=== PATIENT | male | born 1985 | race Caucasian/White ===

== ENCOUNTER 2025-02-10 23:42 | Inpatient (IN) | payer MEDICAID, SELFPAY ==
[2025-02-10 23:31] VITALS: PULSE 96
--- NOTE | 2025-02-10 23:38 | W.PM.HP.N ---
Date of service: 02/10/25 Time of Service: 23:38 Assessment and Plan Assessment and plan (1) Acute pancreatitis without infection or necrosis: Status: Acute Assessment and plan: This is a 39-year-old gentleman with a history of chronic methadone treatment with no other medical therapy and also having chronic alcoholism mostly binge drinking. His is been binge drinking last 3 months and stopped having alcohol this morning when he had acute onset of abdominal pain with vomiting. He has acute pancreatitis by CT scan done at outside institution and ultrasound of the abdomen has been ordered to rule out gallbladder disease but this most likely be an alcohol induced pancreatitis. There appears to be no complications of infection or cyst/abscess formation by outside CT scan report. Patient will be given Dilaudid IV for pain management and IV hydration with electrolyte repletion as below. He also will be placed on alcohol withdrawal protocol with phenobarbital as below. He has a full code. (2) Alcohol withdrawal: Status: Acute Assessment and plan: Acute onset with cessation of alcohol secondary to pancreatitis. Alcohol withdrawal protocol. ICU admission with his severity. (3) Hypokalemia: Start date: 02/10/25 Status: Acute Assessment and plan: IV repletion and monitor labs. This most likely is secondary to GI loss with his vomiting. (4) Hypomagnesemia: Start date: 02/10/25 Status: Acute Assessment and plan: IV repletion and monitor closely especially patient having bigeminy PVCs. EKG did not show any acute ischemic changes. Is not having chest pain. (5) Acute hyperglycemia: Start date: 02/10/25 Status: Acute Assessment and plan: Patient has no history of diabetes but hemoglobin A1c will be checked and he will have glucometer measurements every 6 hours while n.p.o. for his acute pancreatitis with sensitive insulin sliding scale coverage. (6) Chronic alcoholism: Status: Chronic Assessment and plan: Patient should consider outpatient rehabilitation for alcohol cessation. He is already on methadone for opiate use disorder. He does have high risk for self treatment with his multiple addictive issues and urine drug screen was done being negative for cocaine but positive for methadone and positive for opiates with patient receiving opiates and ER for his acute pancreatitis prior to admission and prior to this urine drug screen. And also with positive THC. Patient will have send out urine drug screens for buprenorphine, fentanyl, oxycodone and xylazine. He will continue counseling for his opioid use disorder at the [facility]. (7) Opioid use disorder, moderate, in early remission, on maintenance therapy, dependence: Status: Chronic Assessment and plan: Continue methadone once confirmed as 125 mg liquid methadone daily once patient has less nausea and vomiting. Watch for opioid withdrawal as well. This dose may need to be adjusted if he continues to vomit and is dehydrated. The PDMP was reviewed and negative for any prescribed narcotics with methadone being given through the clinic and not on this report. History of Present Illness History of Present Illness Chief Complaint: Acute onset of abdominal pain with nausea and vomiting in a alcoholic Narrative: This is a 39-year-old male patient who is transferred from [facility] ED because of ICU level care required with his alcohol withdrawal. He presented to the ED with acute onset of abdominal pain with nausea and vomiting for almost the entire day began at 8 AM the day of presentation 02/10/2025. He was given to go through alcohol withdrawal and was having some issues with pain control as well as requiring IV fluids for replacement of potassium and magnesium as well as hydration. He has no history of diabetes but did have hyperglycemia. He also had an elevated anion gap. His liver function tests were not elevated and his PT/INR was only slightly elevated with his chronic alcohol use. He is on chronic methadone at 130 mg daily. PDMP was reviewed and shows no prescribed narcotics with methadone not on this report being given through the clinic. The patient's dosage will be confirmed with [facility] prior to continuing. He reports no other home meds. Patient states that his last drink of alcohol was the morning of admission when he began to have nausea and vomiting with his abdominal pain. He has gone through alcohol withdrawal in the past when placed in prison but they did treat him with Librium at that time. He has never been hospitalized for alcohol withdrawal or pancreatitis. He does still have his gallbladder. He is a smoker and will need nicotine supplement. He denies other drug use but urine drug screen with send outs for atypical street drugs will be sent because of the patient's risk of self treatment. He does have an opioid use disorder on methadone as stated. The patient states that he drinks an binge episode and recently has been drinking heavily for 3 months. As stated he denies any previous pancreatitis. Patient will be admitted to the ICU for close monitoring on alcohol withdrawal protocol with phenobarbital. He is a full code. Review of Systems Narrative: 13 point review of system otherwise unrevealing or stable. PFSH All Active Problems (Updated 02/11/25 @ 05:55 by Pritesh Balderas) Acute hyperglycemia (Acute) Opioid use disorder, moderate, in early remission, on maintenance therapy, dependence (Chronic) Hypomagnesemia (Acute) Hypokalemia (Acute) Alcohol withdrawal (Acute) Chronic alcoholism (Chronic) Acute pancreatitis without infection or necrosis (Acute) Social History Smoking/Tobacco Use Status: Current every day Tobacco Type: cigarettes Years smoked: 20 Tobacco: How many years used: 20 Smoking risk assessment performed?: Yes Alcohol Intake: current Alcohol Intake frequency: 3 or more drinks per day Alcohol type: hard liquor Drug use: Occasionally Substance use type: marijuana and opiates Housing: house Meds Allergies and Home Medications Allergies Allergy/AdvReac Type Severity Reaction Status Date / Time No Known Allergies Allergy Unverified 02/11/25 00:08 Exam Narrative Exam Narrative: General: Patient appears in moderate to severe distress from his abdominal discomfort and sweating but is alert and oriented x 3. Skin: Pale, sweaty and cool. HEENT: Normocephalic, eyes with pupils equal and react to light symmetrically, extraocular movement intact and sclera anicteric. Oropharynx with dry mucosa and poor dentition with discoloration but no missing teeth. Neck: Supple without JVD. Back: Stooped posture without CVA tenderness. Lungs: Bronchovesicular breath sounds diffusely with no focalizing rales or rhonchi. No expiratory wheeze. Heart: Bradycardic with regularly irregular beat having an extrasystole every other beat with cardiac monitoring revealing PVCs and bigeminy. No clinical murmur or gallop. Abdomen: Obese and slightly protuberant, guarding tenderness in the upper abdomen especially in the epigastric area with no rebound. No appreciable hepatomegaly but exam limited by patient guarding pain. Bowel sounds are decreased but active in all quadrants. (Rectal: Exam deferred. Extremities: Without clubbing, cyanosis or pitting edema. Peripheral pulses intact. Neuro: Cranial nerves II to XII gross intact, no tremor and no focalized motor deficits. Psych: Flat affect the patient manifesting no abnormal thought processes. He appeared depressed. He is slightly anxious. Remote and recent memory appear grossly intact. Results Labs 02/11/25 05:35 02/10/25 23:55 Time Spent Time spent with Patient: >75 minutes Time was spent: preparing to see the patient(eg.review tests), obtaining and/or reviewing separately otained hiistory, ordering medications,tests, procedures, referring, communicating with other health infant caregiver, indepentently interpreting results, counseling the patient and care coordination
[2025-02-10 23:40] VITALS: PULSE 101; PULSE 98; RESP 15; O2SAT 94
--- NOTE | 2025-02-10 23:45 | RT.EKG_ITS ---
APPROVED REPORT Exam: Resting ECG Reason for Exam: Bigeminy PVCs Patient Location: I HR:100 bpm ECG Measurements Heart Rate 100 AXIS AR 119 P 36 QRSd 92 QRS -15 QT 396 T 39 QTc 511 Conclusion Sinus rhythm Ventricular bigeminy...bigeminy string>4 w/ V complexes Borderline short AR interval...AR int <120mS Low voltage, extremity leads...all extremity leads <0.5mV
[2025-02-10 23:49] VITALS: BP 175/98; PULSE 101; PULSE 46; RESP 25; TEMP 36.4; O2SAT 96
[2025-02-10 23:50] VITALS: PULSE 48; PULSE 99; RESP 19; O2SAT 95
[2025-02-11] VITALS (63 sets, daily range): BP systolic 139–180; BP diastolic 88–123; PULSE 40–128; RESP 14–34; TEMP 36.6–37.6; O2SAT 89–97
[2025-02-11 00:18] LABS: INR 1.1 (0.9-1.1); Prothrombin Time 11.4 sec (9.1-11.1)
[2025-02-11 00:20] LABS: ALT 27 U/L (16-63); AST 46 U/L (15-37); Albumin 2.7 g/dL (3.4-5.0); Alkaline Phosphatase 79 U/L (46-116); Anion Gap 15.5 mmol/L (3-11); BUN 9 mg/dL (7-18); Bilirubin, Total 0.9 mg/dL (0.2-1.0); CO2 21.5 mmol/L (21.0-32.0); Calcium 8.3 mg/dL (8.5-10.1); Chloride 107 mmol/L (98-107); Estimated GFR 78.40 (mL/min/1.73m2); Glucose 210 mg/dL (74-106); Magnesium 1.7 mg/dL (1.8-2.4); Potassium 4.3 mmol/L (3.5-5.1); Sodium 144 mmol/L (136-145); Total Protein 5.7 g/dL (6.4-8.2)
[2025-02-11] MEDS: Lactated Ringers 1,000 ML 150 ML IV ×4 (00:21→22:44)
[2025-02-11] MEDS: HYDROmorphone 2 MG/ML SYR IVP ×5 (00:21→08:49)
[2025-02-11] MEDS: Normal Saline Flush 10 ML SYR (00:27)
[2025-02-11 00:28] LABS: TSH 0.67 uIU/mL (0.36-3.74)
[2025-02-11] MEDS: Normal Saline Flush 10 ML SYR IVP ×7 (00:28→20:22)
[2025-02-11] MEDS: MAGNESIUM SULFATE 4 GM/100 ML BAG IV_INF (00:48)
[2025-02-11 00:50] LABS: COVID-19 PCR Negative (Negative); RSV PCR Negative (Negative)
[2025-02-11] MEDS: PHENobarbital 130 MG/ML VIAL IVP ×4 (01:28→12:03)
[2025-02-11] MEDS: ACETAMINOPHEN 1,000 MG/100 ML BAG 400 MG IVPB ×2 (01:38→17:31)
[2025-02-11] MEDS: POTASSIUM CHLORIDE 20 MEQ/100 ML BAG 50 MEQ IV_INF (02:38)
[2025-02-11] MEDS: PHENobarbital 150 MG in Normal Saline 50 ML 100 MG IVPB ×2 (03:22→06:26)
[2025-02-11] MEDS: Nicotine 21 MG/24 HR PATCH TD (03:33)
--- NOTE | 2025-02-11 03:50 | W.PC.ACHO ---
Registration Status: ADM IN Primary Language: Preferred Language: Most Recent Vital Signs Temperature 37.1 C 02/11/25 02:00 Pulse 96 H 02/11/25 02:40 Pulse 96 H 02/11/25 02:40 Respiratory Rate 17 02/11/25 02:40 Respiratory Effort Normal 02/11/25 00:01 Blood Pressure 165/110 H 02/11/25 02:00 Blood Pressure Mean 125 02/11/25 02:00 Blood Pressure Position Supine 02/11/25 00:01 Pulse Oximetry 95 02/11/25 02:40 Oxygen Delivery Method Room Air 02/11/25 00:01 Oxygen Flow Rate 0 02/11/25 00:01 Pain Level 10 02/11/25 02:29 Allergies No Known Allergies Allergy (Unverified 02/11/25 00:08) Active Medications Generic Name Dose Route Start Last Admin Trade Name Freq PRN Reason Stop Dose Admin Hydromorphone HCl 2 mg 02/11/25 01:05 02/11/25 02:29 Hydromorphone 2 Mg/Ml Syr IVP 2 mg Q2H PRN Administration Phenobarbital Sodium 300 mg/ 52.3077 mls @ 100 mls/hr 02/12/25 00:00 02/11/25 01:00 Sodium Chloride IVPB 02/12/25 00:31 Infused NOW ONE Infusion Phenobarbital Sodium 150 mg/ 51.1538 mls @ 100 mls/hr 02/11/25 03:00 02/11/25 03:22 Sodium Chloride IVPB 02/11/25 04:00 100 mls/hr ONCE@0300 SANDOVAL Administration Acetaminophen 1,000 mg in 100 mls @ 400 mls/hr 02/11/25 01:04 02/11/25 02:35 Ofirmev IVPB Infused Q6H PRN PRN Infusion Ringer's Solution 1,000 mls @ 150 mls/hr 02/11/25 03:00 02/11/25 00:21 IV 150 mls/hr INFUSION SANDOVAL Administration Nicotine 21 mg 02/11/25 03:20 02/11/25 03:33 Nicotine 21 Mg/24 Hr Patch TD 21 mg DAILY SANDOVAL Administration Phenobarbital Sodium 130 mg 02/10/25 23:47 02/11/25 02:08 Phenobarbital 130 Mg/Ml Vial IVP 130 mg DIRECTED PRN Administration for mild anxiety/agitation Sodium Chloride 0 ml 02/10/25 23:42 02/11/25 00:28 Normal Saline Flush 10 Ml Syr IVP 40 ml PRN PRN Administration IV IV Catheter Type [Right Peripheral IV Antecubital] IV Catheter Gauge [Right 18 Antecubital] Diet Orders Category Date Time Status Nothing Per Oral [DIET] Nutrition 02/10/25 23:44 Active Diagnostics 02/11/25 02/11/25 02/11/25 Range/Units 05:35 03:06 00:37 WBC Pending RBC Pending Hgb Pending Hct Pending MCV Pending MCH Pending MCHC Pending RDW Pending Plt Count Pending MPV Pending PT (9.1-11.1) sec INR (0.9-1.1) Sodium Pending (136-145) mmol/L Potassium Pending (3.5-5.1) mmol/L Chloride Pending (98-107) mmol/L Carbon Dioxide Pending (21.0-32.0) mmol/L Anion Gap Pending (3-11) mmol/L BUN Pending (7-18) mg/dL Creatinine Pending (0.70-1.30) mg/dL Est GFR (CKD-EPI 2020) Pending (mL/min/1.73m2) Glucose Pending (74-106) mg/dL Calcium Pending (8.5-10.1) mg/dL Phosphorus Pending Magnesium Pending (1.8-2.4) mg/dL Total Bilirubin Pending (0.2-1.0) mg/dL AST Pending (15-37) U/L ALT Pending (16-63) U/L Alkaline Phosphatase Pending (46-116) U/L Total Protein Pending (6.4-8.2) g/dL Albumin Pending (3.4-5.0) g/dL TSH (0.36-3.74) uIU/mL Urine Color Urine Clarity Urine pH Ur Specific Fay Urine Protein Urine Ketones Urine Blood Urine Nitrite Urine Bilirubin Urine Urobilinogen Ur Leukocyte Esterase Urine Glucose Urine Opiates Screen Pending Ur Buprenorphine Ur Norbuprenorphine Ur Oxycodone Screen Urine Fentanyl Screen Pending Ur Barbiturates Screen Pending Ur Tricyclics Screen Pending Ur Amphetamines Screen Pending U Benzodiazepines Scrn Pending Urine Cocaine Screen Pending Ur THC Screen Pending Ethyl Alcohol (<10) mg/dL Urine Xylazine COVID-19 Source SARS-CoV-2 (PCR) (Negative) Influenza Type A (PCR) (Negative) Influenza Type B (PCR) (Negative) RSV (PCR) (Negative) 02/11/25 02/11/25 02/10/25 Range/Units 00:35 00:30 23:58 WBC RBC Hgb Hct MCV MCH MCHC RDW Plt Count MPV PT (9.1-11.1) sec INR (0.9-1.1) Sodium (136-145) mmol/L Potassium (3.5-5.1) mmol/L Chloride (98-107) mmol/L Carbon Dioxide (21.0-32.0) mmol/L Anion Gap (3-11) mmol/L BUN (7-18) mg/dL Creatinine (0.70-1.30) mg/dL Est GFR (CKD-EPI 2020) (mL/min/1.73m2) Glucose (74-106) mg/dL Calcium (8.5-10.1) mg/dL Phosphorus Magnesium (1.8-2.4) mg/dL Total Bilirubin (0.2-1.0) mg/dL AST (15-37) U/L ALT (16-63) U/L Alkaline Phosphatase (46-116) U/L Total Protein (6.4-8.2) g/dL Albumin (3.4-5.0) g/dL TSH (0.36-3.74) uIU/mL Urine Color Pending Urine Clarity Pending Urine pH Pending Ur Specific Fay Pending Urine Protein Pending Urine Ketones Pending Urine Blood Pending Urine Nitrite Pending Urine Bilirubin Pending Urine Urobilinogen Pending Ur Leukocyte Esterase Pending Urine Glucose Pending Urine Opiates Screen Ur Buprenorphine Pending Ur Norbuprenorphine Pending Ur Oxycodone Screen Pending Urine Fentanyl Screen Ur Barbiturates Screen Ur Tricyclics Screen Ur Amphetamines Screen U Benzodiazepines Scrn Urine Cocaine Screen Ur THC Screen Ethyl Alcohol (<10) mg/dL Urine Xylazine Pending COVID-19 Source Nasopharynx SARS-CoV-2 (PCR) Negative (Negative) Influenza Type A (PCR) Negative (Negative) Influenza Type B (PCR) Negative (Negative) RSV (PCR) Negative (Negative) 02/10/25 02/10/25 Range/Units 23:55 22:55 WBC RBC Hgb Hct MCV MCH MCHC RDW Plt Count MPV PT 11.4 H (9.1-11.1) sec INR 1.1 (0.9-1.1) Sodium 144 (136-145) mmol/L Potassium 4.3 (3.5-5.1) mmol/L Chloride 107 (98-107) mmol/L Carbon Dioxide 21.5 (21.0-32.0) mmol/L Anion Gap 15.5 H (3-11) mmol/L BUN 9 (7-18) mg/dL Creatinine 1.2 (0.70-1.30) mg/dL Est GFR (CKD-EPI 2020) 78.40 (mL/min/1.73m2) Glucose 210 H (74-106) mg/dL Calcium 8.3 L (8.5-10.1) mg/dL Phosphorus Magnesium 1.7 L (1.8-2.4) mg/dL Total Bilirubin 0.9 (0.2-1.0) mg/dL AST 46 H (15-37) U/L ALT 27 (16-63) U/L Alkaline Phosphatase 79 (46-116) U/L Total Protein 5.7 L (6.4-8.2) g/dL Albumin 2.7 L (3.4-5.0) g/dL TSH 0.67 (0.36-3.74) uIU/mL Urine Color Urine Clarity Urine pH Ur Specific Fay Urine Protein Urine Ketones Urine Blood Urine Nitrite Urine Bilirubin Urine Urobilinogen Ur Leukocyte Esterase Urine Glucose Urine Opiates Screen Ur Buprenorphine Ur Norbuprenorphine Ur Oxycodone Screen Urine Fentanyl Screen Ur Barbiturates Screen Ur Tricyclics Screen Ur Amphetamines Screen U Benzodiazepines Scrn Urine Cocaine Screen Ur THC Screen Ethyl Alcohol < 3.0 (<10) mg/dL Urine Xylazine COVID-19 Source SARS-CoV-2 (PCR) (Negative) Influenza Type A (PCR) (Negative) Influenza Type B (PCR) (Negative) RSV (PCR) (Negative) [id number] Documentation Fingerstick Glucose Start: 02/10/25 23:45 Freq: Status: Active Protocol: Activity Type Activity Date Activity User E-sign Co-sign Detail Recorded Client Recorded Date Recorded By Document 02/10/25 23:45 ETHANG DAEMON(3) [id number] 02/10/25 23:45 BKG DAEMON(4) Intake and Output - 24 Hour Total 02/10/25 thru 02/11/25 02:42 Intake Total 262.3077 Output Total 300 Balance -37.6923 Weight 75.2 kg Intake: IV 262.3077 Output: Urine 300 Other: Urine Color Light Cierra Urine Appearance Clear Urine Odor None Falls Risk Assessment History of Falls No History 02/11/25 00:01 Contributing Factors Medications 02/11/25 00:01 Tubes/Lines With any additional score 02/11/25 00:01 Gait Evaluation No gait disturbance 02/11/25 00:01 Fall Total Score 23 02/11/25 00:01 Level of Risk Standard/Low Risk 02/11/25 00:01 Problems (Last Reviewed 02/10/25 @ 23:38 by Pritesh Balderas) Hypomagnesemia (Acute) Hypokalemia (Acute) Alcohol withdrawal (Acute) Chronic alcoholism (Acute) Acute pancreatitis without infection or necrosis (Acute) v v v v v v v v v Sending and/or Receiving Nurses: Please use comment section below to note any information pertinent to the patient hand-off not included above. Information / Comments: Report received from: Elsa Leung RN all questions answered: yes
[2025-02-11] MEDS: Ondansetron 4 MG/2 ML VIAL IVP (04:04)
[2025-02-11 04:16] LABS: Glucose Negative (Negative)
[2025-02-11 04:27] LABS: C & S Indicated? No; RBC 0-2 HPF (0-2); WBC Negative HPF (0-5)
[2025-02-11 04:37] LABS: Cannabinoids THC Positive (Negative); METHADONE URINE SCREEN Positive (Negative)
[2025-02-11 06:24] LABS: HCT 36.2 % (40.0-50.0); HGB 12.4 g/dL (13.5-17.5); MCH 33.9 pg (27.0-33.0); MCHC 34.3 % (32.0-36.0); MCV 99 fL (80-95); MPV 9.5 fL (8.0-11.0); Platelet Count 250 10^3/uL (130-400); RBC 3.66 10^6/uL (4.36-5.78); RDW 19.5 % (11.8-14.1); RDW-SD 67.1 fL; WBC 11.07 10^3/uL (4.4-10.8)
[2025-02-11 06:36] LABS: ALT 25 U/L (16-63); AST 44 U/L (15-37); Albumin 2.6 g/dL (3.4-5.0); Alkaline Phosphatase 71 U/L (46-116); Anion Gap 12.1 mmol/L (3-11); BUN 9 mg/dL (7-18); Bilirubin, Total 0.9 mg/dL (0.2-1.0); CO2 21.9 mmol/L (21.0-32.0); Calcium 8.3 mg/dL (8.5-10.1); Chloride 106 mmol/L (98-107); Estimated GFR 97.58 (mL/min/1.73m2); Glucose 238 mg/dL (74-106); Magnesium 2.4 mg/dL (1.8-2.4); Potassium 4.2 mmol/L (3.5-5.1); Sodium 140 mmol/L (136-145); Total Protein 5.6 g/dL (6.4-8.2)
[2025-02-11 06:46] LABS: Hemoglobin A1C 5.8 % (<5.7)
[2025-02-11] MEDS: Metoclopramide 10 MG/2 ML VIAL IVP ×2 (07:01→22:06)
--- NOTE | 2025-02-11 08:00 | DI.US_ITS ---
Exam(s) US ABDOMEN LIMITED EXAM: US ABDOMEN LIMITED CLINICAL HISTORY: Acute pancreatitis TECHNIQUE: Ultrasound of the right upper quadrant performed using standard protocol. COMPARISON: No exams were available for comparison FINDINGS: LIVER: Enlarged at 19.3 cm in length. Normal coarsened echotexture. Increased echogenicity and decreased through transmission, consistent with moderate to severe hepatic steatosis. No focal liver lesions are seen.. GALLBLADDER: No evidence of cholelithiasis. No evidence of wall thickening. No pericholecystic fluid identified. CAMERON'S SIGN: Negative. BILIARY SYSTEM: No intrahepatic or extrahepatic biliary ductal dilation. RIGHT KIDNEY: Normal size. No evidence of renal calculi. No evidence of hydronephrosis. No suspicious renal mass. No cyst identified. PANCREAS: Not well visualized. No gross evidence of surrounding fluid. ABDOMINAL AORTA AND IVC: Visualized portions normal caliber. ASCITES: None seen. IMPRESSION: Enlarged liver with moderate to severe hepatic steatosis. Pancreas is not visualized. No gallstones or evidence of acute cholecystitis. DATA REPOSITORY:
[2025-02-11] MEDS: Methadone Liquid 10 MG/ML 125 MG PO (08:48)
[2025-02-11] MEDS: Enoxaparin 40 MG/0.4 ML SYR SC (08:50)
--- NOTE | 2025-02-11 09:09 | W.NUTRFU ---
Date of service: 02/11/25 Time of Service: 09:09 Nutrition Note NOTE: Pt currently day 2 of NPO statues since admission yesterday for acute pancreatitis with hyperglycemia related to etoh w/drawl. low mag - being repleted. Ordered for banana bag for repletion as well. Glucose fingersticks ordered q6 hours to monitor. A1c 5.8 02/11/25 - indicative or prediabetes. No curernt nutrition intervention planned at this time due to npo status - will monitor for diet advancement/toleration, nutrition-related labs, weight. Time Spent in Nutritional Counseling and Treatment: 0
[2025-02-11] MEDS: MULTIVITAMIN 10 ML, THIAMINE 100 MG, FOLIC ACID 1 MG in DEXTROSE 5%-0.45% SALINE 1,000 ML 42 ML IV (09:19)
--- NOTE | 2025-02-11 09:39 | INITIAL_ITS ---
Date of service: 02/11/25 Time of Service: 09:39 Care Management Initial Assmt Initial Assessment Reason for Hospitalization: pancreatitis Functional Status/Living Situation Patient Presentation: Amauri lives alone in [facility] in a single family home which he owns. He is currently unemployed; he was recently [facility]. He shared that he does do work for his mother for which he is paid. Prior to his incarceration he worked in construction as a front desk administrator. Amauri has one child who lives with her mother in [place]. When asked, he confirmed that he does maintain a relationship with her. Amauri receives food stamps but no other community resources and is independent at baseline. Amauri was admitted with pancreatitis and alcohol withdrawal. He is on the phenobarbital protocol and has only been scoring 3-4 on the CIWA scale. He informed that he has been drinking heavily for the last couple of months but had not been a particularly heavy drinker in the past. offered to contact a recovery advocate but Amauri declined. His pain has been difficult to control, possibly because he is on maintenance suboxone and has a high pain threshold. He has been requiring 3 mg of IV Dilaudid every 2 hours and stated it only helps a little. During the visit Amauri was c/o nausea and needed to use his emesis bag for dry heaves. Town of Residence: [place] Resides with: Alone Significant Other/Family: Local Natural Supports: mother Employment Status: Unemployed Instrumental Activities of Daily Living (ADLs): Independent Medications Medication Management: No Issues/Barriers identified Physical Functioning/Mobility Assistive Device: none Advance Directives Advance Directives: Do you have an Advance Directive: AD On File at [facility]: N Today, 00:24 Date Asked AD Date Reviewed COLST On File at 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 STAFF PHYSICIAN Isma Garcia DO Primary Care Provider NON-[facility] STAFF PHYSICIAN Pritesh Balderas Admit Provider NON-[facility] STAFF PHYSICIAN Attending Provider Discharge Potential Discharge Needs: PCP F/U Appt Anticipated Barriers to Discharge: None Identified Patient/Family Education Needs: Review discharge instructions, discuss Ask Me Three Transportation: Private vehicle Plan: Anticipate Amauri will be discharged home with no new services when medically cleared. He will follow up with his conmmunity providers and plan of care and transport with family. CM will follow and continue to assess for discharge needs. Social Determinants of Health Screening Social Determinants of health last assessed in clinic: 02/11/25 Will the Patient Participate in the Screening?: Yes Do you worry about having a steady place to live?: no Problems where you live: no known problems In the past 12 months, have you had to go without electric, gas, oil or water in your home?: no 1. Within the past 12 months, we worried whether our food would run out before we got money to buy more.: Never true 2. Within the past 12 months, the food we bought just didn't last and we didn't have money to get more.: Never true Has lack of transportation kept you from medical appointments or from doing things needed for daily living?: no Has anyone in your life made you feel unsafe or unsupported?: no How hard is it for you to pay for the very basics like food, housing, medical care, and heating? Would you say it is:: Not hard at all Do you want help finding or keeping work or a job?: I do not need or want help If for any reason you need help with day-to-day activities such as bathing, preparing meals, shopping, managing finances, etc., do you get the help you need?: I don?t need any help How often do you feel lonely or isolated from those around you?: Never Do you speak a language other than Amharic at home?: No Does the patient want assistance with any of the above?: No PFSH All Active Problems (Updated 02/11/25 @ 12:10 by Greg Negron DO) Esophageal thickening (Acute) Acute hyperglycemia (Acute) Opioid use disorder, moderate, in early remission, on maintenance therapy, dependence (Chronic) Hypomagnesemia (Acute) Hypokalemia (Acute) Alcohol withdrawal (Acute) Chronic alcoholism (Chronic) Acute pancreatitis without infection or necrosis (Acute) Social History Smoking/Tobacco Use Status: Current every day Tobacco Type: cigarettes Years smoked: 20 Tobacco: How many years used: 20 Smoking risk assessment performed?: Yes Alcohol Intake: current Alcohol Intake frequency: 3 or more drinks per day Alcohol type: hard liquor Drug use: Occasionally Substance use type: marijuana and opiates Housing: [place]
[2025-02-11] MEDS: Insulin Aspart 300 UNITS/3 ML PEN SC ×3 (09:54→16:54)
[2025-02-11] MEDS: Calcium Carbonate *TUMS* 500 MG CHEW PO ×3 (10:12→22:05)
--- NOTE | 2025-02-11 10:15 | W.SURGCON ---
Date of service: 02/11/25 Time of Service: 10:15 Assessment and Plan Assessment and plan (1) Esophageal thickening: Status: Acute Assessment and plan: Incidental on outside CT scan. History of distal esophageal tear. Also chronic reflux, well-controlled. Currently in alcohol withdraw - discussed possible etiologies with patient - will need EGD but not stable for anesthesia at this time - will start with barium swallow at this time - discussed with radiology (2) Acute pancreatitis without infection or necrosis: Status: Acute Assessment and plan: Alcoholic pancreatitis following 3-month binge, no evidence of necrosis or infection on outside imaging. Right upper quadrant ultrasound negative for gallstones. Ultrasound shows hepatic steatosis and patient at risk for cirrhosis based on alcohol use. Hyperglycemia secondary to pancreatitis - Supportive care - Okay for clear liquid diet from surgery standpoint (3) Alcohol withdrawal: Status: Acute Assessment and plan: - CIWA monitoring and treatment per protocol (4) Opioid use disorder, moderate, in early remission, on maintenance therapy, dependence: Status: Chronic History of Present Illness History of Present Illness Chief Complaint: pancreatitis Narrative: 39-year-old male with history of alcoholism and substance abuse admitted with abdominal pain. Patient recently on a 3-month drinking binge. Patient presented to the emergency department at [facility] 02/10 with severe epigastric abdominal pain. CT scan showed pancreatitis and patient transferred to [facility] ICU for alcohol withdrawal. Incidentally noted, patient had distal esophageal thickening as well. Patient has history of distal esophageal tear secondary to emesis 20 years ago. Patient also has mild reflux, well-controlled with daily PPI. Denies dysphagia or chest pain after eating. Denies chest pain, shortness of breath. Epigastric pain remains severe. No nausea or vomiting Review of Systems Constitutional Constitutional: Denies chills, Denies fever(s), Denies poor appetite and Denies weakness ENT Ears, Nose, Mouth, and Throat: Denies dysphagia, Denies dizziness, Denies odynophagia and Denies throat swelling Cardiovascular Cardiovascular: Denies chest pain, Denies irregular heart rhythm and Denies dyspnea Respiratory Respiratory: Denies cough, Denies hemoptysis and Denies dyspnea Gastrointestinal Gastrointestinal: Reports abdominal pain (Epigastric), Denies dysphagia, Denies dyspepsia, Reports heartburn, Denies nausea, Denies odynophagia and Denies vomiting Neurologic Neurologic: Denies confusion, Denies dizziness and Denies weakness Psychiatric Psychiatric: Denies confusion Allergic/Immunologic Allergic/Immunologic: Denies throat swelling PFSH All Active Problems (Updated 02/11/25 @ 12:10 by Greg Negron DO) Esophageal thickening (Acute) Acute hyperglycemia (Acute) Opioid use disorder, moderate, in early remission, on maintenance therapy, dependence (Chronic) Hypomagnesemia (Acute) Hypokalemia (Acute) Alcohol withdrawal (Acute) Chronic alcoholism (Chronic) Acute pancreatitis without infection or necrosis (Acute) Social History Smoking/Tobacco Use Status: Current every day Tobacco Type: cigarettes Years smoked: 20 Tobacco: How many years used: 20 Smoking risk assessment performed?: Yes Alcohol Intake: current Alcohol Intake frequency: 3 or more drinks per day Alcohol type: hard liquor Drug use: Occasionally Substance use type: marijuana and opiates Housing: house Exam Const General: cooperative, comfortable and in distress HENMT Mouth: oral mucosae normal Resp Effort & Inspection: normal respiratory effort and no cough Cardio Rate: regular rate GI Inspection: normal to inspection Palpation: soft, no guarding and tender in the epigastrum and in the RUQ Skin General skin exam: no ecchymosis, no erythema and no jaundice Neuro General: patient alert, patient awake and patient oriented x3 Cranial Nerves: CN's II-XI intact bilaterally Cognition: normal cognition Speech: speech normal Psych Appearance: grossly normal Speech and Movement: speech and movement normal Results Last Vital Signs Temp 36.9 C 02/11/25 09:26 Pulse 85 02/11/25 09:27 Resp 20 02/11/25 09:27 BP 165/104 H 02/11/25 09:27 Pulse Ox 93 02/11/25 09:27 Labs 02/11/25 05:50 02/11/25 05:50 Labs: Laboratory Results - last 24 hr 02/10/25 02/10/25 02/10/25 22:55 23:55 23:58 WBC RBC Hgb Hct MCV MCH MCHC RDW Plt Count MPV PT 11.4 H INR 1.1 VBG Lactate Sodium 144 Potassium 4.3 Chloride 107 Carbon Dioxide 21.5 Anion Gap 15.5 H BUN 9 Creatinine 1.2 Est GFR (CKD-EPI 2020) 78.40 Glucose 210 H Hemoglobin A1c Calcium 8.3 L Phosphorus Magnesium 1.7 L Total Bilirubin 0.9 AST 46 H ALT 27 Alkaline Phosphatase 79 Total Protein 5.7 L Albumin 2.7 L TSH 0.67 Urine Color Urine Clarity Urine pH Ur Specific [place] Urine Protein Urine Ketones Urine Blood Urine Nitrite Urine Bilirubin Urine Urobilinogen Ur Leukocyte Esterase Urine RBC Urine WBC Ur Epithelial Cells Urine Crystals Urine Bacteria Urine Casts Urine Mucus Ur Culture Indicated? Urine Glucose Urine Opiates Screen Urine Methadone Screen Ur Barbiturates Screen Ur Tricyclics Screen Ur Amphetamines Screen U Benzodiazepines Scrn Urine Cocaine Screen Ur THC Screen Ethyl Alcohol < 3.0 COVID-19 Source Nasopharynx SARS-CoV-2 (PCR) Negative Influenza Type A (PCR) Negative Influenza Type B (PCR) Negative RSV (PCR) Negative 02/11/25 02/11/25 00:30 05:50 WBC 11.07 H RBC 3.66 L Hgb 12.4 L Hct 36.2 L MCV 99 H MCH 33.9 H MCHC 34.3 RDW 19.5 H Plt Count 250 MPV 9.5 PT INR VBG Lactate 5.7 H* Sodium 140 Potassium 4.2 Chloride 106 Carbon Dioxide 21.9 Anion Gap 12.1 H BUN 9 Creatinine 1.0 Est GFR (CKD-EPI 2020) 97.58 Glucose 238 H Hemoglobin A1c 5.8 H Calcium 8.3 L Phosphorus 2.3 L Magnesium 2.4 Total Bilirubin 0.9 AST 44 H ALT 25 Alkaline Phosphatase 71 Total Protein 5.6 L Albumin 2.6 L TSH Urine Color Yellow Urine Clarity Clear Urine pH 6.5 Ur Specific [place] 1.020 Urine Protein 30 H Urine Ketones Trace H Urine Blood Trace-lysed H Urine Nitrite Negative Urine Bilirubin Negative Urine Urobilinogen 0.2 Ur Leukocyte Esterase Negative Urine RBC 0-2 Urine WBC Negative Ur Epithelial Cells Negative Urine Crystals Negative Urine Bacteria Negative Urine Casts Negative Urine Mucus Negative Ur Culture Indicated? No Urine Glucose Negative Urine Opiates Screen Positive A Urine Methadone Screen Positive A Ur Barbiturates Screen Negative Ur Tricyclics Screen Negative Ur Amphetamines Screen Negative U Benzodiazepines Scrn Negative Urine Cocaine Screen Negative Ur THC Screen Positive A Ethyl Alcohol COVID-19 Source SARS-CoV-2 (PCR) Influenza Type A (PCR) Influenza Type B (PCR) RSV (PCR) Imaging Abdominal ultrasound report/results: report reviewed and image reviewed Additional studies: Barium swallow
[2025-02-11] MEDS: HYDROmorphone 2 MG/ML SYR 3 MG IVP ×5 (11:02→22:36)
[2025-02-11 11:11] LABS: LDH 448 U/L (85-227)
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
--- NOTE | 2025-02-11 14:50 | DI.RAD_ITS ---
Exam(s) RF BARIUM SWALLOW EXAM: RF BARIUM SWALLOW CLINICAL HISTORY: distal esophageal thickening TECHNIQUE: 2D and realtime digital imaging was performed. CONTRAST MATERIAL: Thick and thin barium and barium tablet were administered. COMPARISON: No exams were available for comparison FINDINGS: The PA and lateral chest films show arm bibasilar atelectasis. The lateral manager basketball view of the neck is unremarkable. Esophagus: The patient swallowed barium without difficulty. Noevidence for mucosal erosions. Nofold thickening. No mass is visible. Nostricture. Motility: There is a normal primary stripping wave. No tertiary contractions were noted. There is a small sliding hiatal hernia. Severe gastroesophageal reflux was observed when the patient was supine. IMPRESSION: Small hiatal hernia. Severe gastroesophageal reflux. No evidence of mucosal erosions. RADIATION DOSE DELIVERED: nickolas Pearce=33 mGy
[2025-02-11] MEDS: Barium Sulfate 700 MG TAB PO (15:16)
[2025-02-11] MEDS: Simethicone/Sod Bicarb/Cit Ac, 4 gram PACKET 1 PACKET PO (15:16)
[2025-02-11] MEDS: Barium Sulfate 60% W/V 355 ML BTL PO (15:17)
[2025-02-11] MEDS: Barium Sulfate 98% W/W 140 ML BTL PO (15:18)
[2025-02-11] MEDS: dexmedeTOMidine IN 0.9 % NACL 400 MCG/100 ML BTL IV (21:52)
[2025-02-12] VITALS (41 sets, daily range): BP systolic 134–162; BP diastolic 92–104; PULSE 66–98; RESP 17–27; TEMP 36.1–37.4; O2SAT 82–93
[2025-02-12] MEDS: HYDROmorphone 2 MG/ML SYR 3 MG IVP ×9 (00:31→22:10)
[2025-02-12] MEDS: Lactated Ringers 1,000 ML 150 ML IV ×3 (05:04→19:22)
[2025-02-12 05:50] LABS: Abs Immature Grans 0.06 10^3/uL (0.0-0.06); HCT 29.7 % (40.0-50.0); HGB 10.3 g/dL (13.5-17.5); Immature Grans % 0.6 %; MCH 34.1 pg (27.0-33.0); MCHC 34.7 % (32.0-36.0); MCV 98 fL (80-95); MPV 9.7 fL (8.0-11.0); Platelet Count 179 10^3/uL (130-400); RBC 3.02 10^6/uL (4.36-5.78); RDW 20.2 % (11.8-14.1); RDW-SD 70.4 fL; WBC 9.52 10^3/uL (4.4-10.8)
[2025-02-12 06:05] LABS: Magnesium 1.7 mg/dL (1.8-2.4)
[2025-02-12 06:06] LABS: ALT 22 U/L (16-63); AST 65 U/L (15-37); Albumin 2.2 g/dL (3.4-5.0); Alkaline Phosphatase 51 U/L (46-116); Anion Gap 1.1 mmol/L (3-11); BUN 13 mg/dL (7-18); Bilirubin, Total 1.3 mg/dL (0.2-1.0); CO2 31.9 mmol/L (21.0-32.0); Calcium 7.9 mg/dL (8.5-10.1); Chloride 103 mmol/L (98-107); Estimated GFR 125.15 (mL/min/1.73m2); Glucose 159 mg/dL (74-106); Lipase 494 U/L (<78); Potassium 3.7 mmol/L (3.5-5.1); Sodium 136 mmol/L (136-145); Total Protein 4.8 g/dL (6.4-8.2)
[2025-02-12 06:28] LABS: Anisocytosis 2+
[2025-02-12] MEDS: dexmedeTOMidine IN 0.9 % NACL 400 MCG/100 ML BTL 7.64 MCG IV (07:27)
[2025-02-12] MEDS: Enoxaparin 40 MG/0.4 ML SYR SC (08:47)
[2025-02-12] MEDS: Methadone Liquid 10 MG/ML 125 MG PO (08:47)
[2025-02-12] MEDS: Normal Saline Flush 10 ML SYR IVP ×2 (08:48→20:11)
[2025-02-12] MEDS: MULTIVITAMIN 10 ML, THIAMINE 100 MG, FOLIC ACID 1 MG in DEXTROSE 5%-0.45% SALINE 1,000 ML 42 ML IV (10:06)
--- NOTE | 2025-02-12 10:19 | PDOC.CMPRO ---
Date of service: 02/12/25 Time of Service: 10:19 Care Management Progress Note Progress Note Text Progress Note Text: Amauri was lying in bed when CM met with him. He stated he is feeling slightly better today than yesterday; his pain was a 10/10 yesterday, and today it is a 9/10. He asked about his insurance covering his hospital stay; CM informed that [facility] will bill RAPHAEL, and discussed the patient assistance program, if there are unforseen costs. Per report, is considering doing an upper endoscopy tomorrow, but Amauri has expressed some indecision about the procedure to his RN. His RN will continue to provide education about the procedure to help ease any anxiety he may have, and to support shared decision making. CM will continue to follow. Discharge Potential Discharge Needs: PCP F/U Appt Anticipated Barriers to Discharge: None Identified Patient/Family Education Needs: Review discharge instructions, discuss Ask Me Three Transportation: Private vehicle Plan: Anticipate Amauri will be discharged home with no new services when medically cleared. He will follow up with his conmmunity providers and plan of care and transport with family. CM will follow and continue to assess for discharge needs. Social Determinants of Health Screening Social Determinants of health last assessed in clinic: 02/12/25 Will the Patient Participate in the Screening?: Yes Do you worry about having a steady place to live?: no Problems where you live: no known problems In the past 12 months, have you had to go without electric, gas, oil or water in your home?: no 1. Within the past 12 months, we worried whether our food would run out before we got money to buy more.: Don't know/refused 2. Within the past 12 months, the food we bought just didn't last and we didn't have money to get more.: Don't know/refused Has lack of transportation kept you from medical appointments or from doing things needed for daily living?: no Has anyone in your life made you feel unsafe or unsupported?: no How hard is it for you to pay for the very basics like food, housing, medical care, and heating? Would you say it is:: Not hard at all Do you want help finding or keeping work or a job?: I do not need or want help If for any reason you need help with day-to-day activities such as bathing, preparing meals, shopping, managing finances, etc., do you get the help you need?: I don?t need any help How often do you feel lonely or isolated from those around you?: Never Do you speak a language other than Malay at home?: No Does the patient want assistance with any of the above?: No
--- NOTE | 2025-02-12 11:40 | PGE_ITS ---
Date of Service Date of service: 02/12/25 Time of Service: 11:40 Assessment and Plan Assessment and plan (1) Acute pancreatitis without infection or necrosis: Status: Acute Assessment and plan: - Patient presented to outside hospital with significant abdominal pain and found to have acute alcoholic pancreatitis having binged for the last 3 months and stopped drinking the morning of presentation - Lipase was elevated and a CT abdomen pelvis did not show any cyst or necrosis at outside hospital - [place] on admission was 2 - Patient tolerating clears, will continue as patient may be receiving EGD for potential stratification or visualization of esophageal varices in the setting of severe alcohol use and cirrhosis (2) Alcohol withdrawal: Status: Acute Assessment and plan: - Patient had reportedly been drinking for 3 months since getting out of long-term - Was started on phenobarb protocol on admission but has since reached max dose - Was started on Precedex early evening 02/11/2025 - CIWA scores have improved, will begin to wean Precedex today 02/12/2025 (3) Hypokalemia: Start date: 02/10/25 Status: Acute Assessment and plan: - Potassium was low at outside hospital - Has since improved, now 3.7 on the morning of 02/12/2025 (4) Hypomagnesemia: Start date: 02/10/25 Status: Acute Assessment and plan: - Reportedly low at outside hospital, has since improved with repletion (5) Acute hyperglycemia: Start date: 02/10/25 Status: Acute Assessment and plan: - no history of diabetes, A1c 5.8 - Likely in the setting of EtOH use - glucose has since improved (6) Chronic alcoholism: Status: Chronic Assessment and plan: - Patient stated he is not 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 02/12/2025 (9) Cirrhosis: Status: Acute Assessment and plan: - History of, likely due to alcohol use disorder as noted above - Reportedly has a history of varices though currently without bleeding - General Surgery recommended EGD for visualization//stratification of potential varices, patient currently undecided if plans to go through scheduled EGD tomorrow 02/13/2025 Subjective Subjective Interval history since last seen: Patient states that he is feeling better today. This time he is unsure if he would want recommended EGD, but will make that decision based on how he feels tomorrow. Otherwise he has no other complaints or concerns at this time. Exam Narrative Exam Narrative: Fatigued but well-appearing gentleman sitting up in the bed in no acute distress, ANO x 4, heart regular rhythm, lungs good auscultation bilaterally, abdomen soft, nontender, nondistended Objective Last Vital Signs Temp 99.0 F 02/12/25 11:11 Pulse 70 02/12/25 11:11 Resp 20 02/12/25 11:11 BP 143/92 H 02/12/25 11:11 Pulse Ox 93 02/12/25 11:11 Laboratory Results - last 24 hr 02/12/25 02/12/25 05:28 05:35 WBC 9.52 Cancelled RBC 3.02 L Cancelled Hgb 10.3 L D Cancelled Hct 29.7 L Cancelled MCV 98 H Cancelled MCH 34.1 H Cancelled MCHC 34.7 Cancelled RDW 20.2 H Cancelled Plt Count 179 Cancelled MPV 9.7 Cancelled Immature Gran % 0.6 Neutrophils % 84.1 Lymphocytes % 8.8 Monocytes % 6.2 Eosinophils % 0.0 Basophils % 0.3 Nucleated RBC % 0.2 Absolute Neutrophils 8.00 H Absolute Lymphocytes 0.84 L Absolute Monocytes 0.59 Absolute Eosinophils 0.00 Absolute Basophils 0.03 RBC Morphology See Below Anisocytosis 2+ VBG Lactate 1.6 Sodium 136 Potassium 3.7 Chloride 103 Carbon Dioxide 31.9 Anion Gap 1.1 L BUN 13 Creatinine 0.6 L Est GFR (CKD-EPI 2020) 125.15 Glucose 159 H Calcium 7.9 L Phosphorus 2.0 L Magnesium 1.7 L Total Bilirubin 1.3 H AST 65 H ALT 22 Alkaline Phosphatase 51 Total Protein 4.8 L Albumin 2.2 L Lipase 494 H PAWSS Have you Been Recently Intoxicated or Drunk Within the Last 30 days?: Yes Have you Ever Experienced Previous Episodes of Alcohol Withdrawal?: Yes Have you ever Experienced Withdrawal Seizures?: No Have you ever Experienced Delirium Tremens(DT)s?: Yes Have you ever undergone Alcohol Rehabilitation Treatment (i.e, inpt ot outpatient treatment programs)?: No Have you ever Experienced Blackouts?: No Have you ever Combined Alcohol with other Downers within the last 90 days?: No Have you ever Combined Alcohol with any other Substance of Abuse during the last 90 days?: No Evidence of Increased Autonomic Activity (i.e. HR>120, tremor, sweating, agitation, nausea)?: Yes Result: 4 Time Spent with Patient Time Spent with Patient: >50 minutes Time was spent: preparing to see the patient(eg.review tests), obtaining and/or reviewing separately otained hiistory, ordering medications,tests, procedures, referring, communicating with other health healthcare manager, indepentently interpreting results, counseling the patient and care coordination
[2025-02-12] MEDS: Insulin Aspart 300 UNITS/3 ML PEN SC ×2 (11:54→17:08)
[2025-02-12 12:20] LABS: Fentanyl Scr w/Rfx Confirm Positive ng/mL (<1)
[2025-02-12] MEDS: Calcium Carbonate *TUMS* 500 MG CHEW PO ×2 (13:57→16:43)
[2025-02-12] MEDS: Mylanta Suspension 30 ML CUP PO (16:49)
[2025-02-12 17:39] LABS: Oxycodone Screen, U Negative ng/mL (Cutoff: 100)
[2025-02-13] MEDS: HYDROmorphone 2 MG/ML SYR 3 MG IVP ×3 (01:00→06:36)
[2025-02-13] MEDS: Calcium Carbonate *TUMS* 500 MG CHEW PO ×2 (01:17→06:50)
[2025-02-13] MEDS: Lactated Ringers 1,000 ML 150 ML IV (02:09)
[2025-02-13 04:27] VITALS: BP 156/99; PULSE 85; RESP 18; TEMP 36.2; O2SAT 97
[2025-02-13 06:51] LABS: Abs Immature Grans 0.19 10^3/uL (0.0-0.06); HCT 29.5 % (40.0-50.0); HGB 10.4 g/dL (13.5-17.5); Immature Grans % 2.1 %; MCH 35.1 pg (27.0-33.0); MCHC 35.3 % (32.0-36.0); MCV 100 fL (80-95); MPV 10.5 fL (8.0-11.0); Platelet Count 195 10^3/uL (130-400); RBC 2.96 10^6/uL (4.36-5.78); RDW 20.6 % (11.8-14.1); RDW-SD 75.1 fL; WBC 9.07 10^3/uL (4.4-10.8)
[2025-02-13 07:06] LABS: Magnesium 1.8 mg/dL (1.8-2.4)
[2025-02-13 07:14] LABS: ALT 19 U/L (16-63); AST 66 U/L (15-37); Albumin 1.9 g/dL (3.4-5.0); Alkaline Phosphatase 58 U/L (46-116); Anion Gap 8.0 mmol/L (3-11); BUN 12 mg/dL (7-18); Bilirubin, Total 1.0 mg/dL (0.2-1.0); CO2 29.0 mmol/L (21.0-32.0); Calcium 7.8 mg/dL (8.5-10.1); Chloride 100 mmol/L (98-107); Estimated GFR 119.46 (mL/min/1.73m2); Glucose 208 mg/dL (74-106); Potassium 3.9 mmol/L (3.5-5.1); Sodium 137 mmol/L (136-145); Total Protein 5.0 g/dL (6.4-8.2)
[2025-02-13 07:21] VITALS: BP 149/82; PULSE 78; RESP 18; TEMP 36.5; O2SAT 96
[2025-02-13 07:55] LABS: Anisocytosis 1+
[2025-02-13] MEDS: Enoxaparin 40 MG/0.4 ML SYR SC (08:28)
[2025-02-13] MEDS: Methadone Liquid 10 MG/ML 125 MG PO (08:29)
[2025-02-13] MEDS: Insulin Aspart 300 UNITS/3 ML PEN SC ×2 (08:30→12:21)
[2025-02-13] MEDS: Normal Saline Flush 10 ML SYR IVP (08:34)
[2025-02-13 09:11] VITALS: O2SAT 96
--- NOTE | 2025-02-13 09:38 | PDOC.CMPRO ---
Date of service: 02/13/25 Time of Service: 09:39 Care Management Progress Note Discharge Potential Discharge Needs: PCP F/U Appt Anticipated Barriers to Discharge: None Identified Patient/Family Education Needs: Review discharge instructions, discuss Ask Me Three Transportation: Private vehicle Plan: Anticipate Amauri will be discharged home with no new services when medically cleared. He will follow up with his community providers and plan of care and transport with family. CM will follow and continue to assess for discharge needs. Social Determinants of Health Screening Social Determinants of health last assessed in clinic: 02/12/25 Will the Patient Participate in the Screening?: Yes Do you worry about having a steady place to live?: no Problems where you live: no known problems In the past 12 months, have you had to go without electric, gas, oil or water in your home?: no Has lack of transportation kept you from medical appointments or from doing things needed for daily living?: no Has anyone in your life made you feel unsafe or unsupported?: no How hard is it for you to pay for the very basics like food, housing, medical care, and heating? Would you say it is:: Not hard at all Do you want help finding or keeping work or a job?: I do not need or want help If for any reason you need help with day-to-day activities such as bathing, preparing meals, shopping, managing finances, etc., do you get the help you need?: I don?t need any help How often do you feel lonely or isolated from those around you?: Never Do you speak a language other than Chinese at home?: No Does the patient want assistance with any of the above?: No
[2025-02-13 09:41] LABS: Norfentanyl Confirmation >200 ng/mL (<10); Xylazine, Confirmation Urine Negative ng/mL (<50)
[2025-02-13] MEDS: HYDROmorphone 2 MG/ML SYR 1 MG IVP (10:12)
[2025-02-13 11:23] VITALS: BP 154/105; PULSE 98; RESP 16; TEMP 35; O2SAT 92
--- NOTE | 2025-02-13 12:05 | W.PM.DS.N ---
Date of service: 02/13/25 Time of Service: 12:05 DS: Diagnosis Discharge Diagnosis (1) Acute pancreatitis without infection or necrosis: Status: Acute (2) Alcohol withdrawal: Status: Acute (3) Hypokalemia: Status: Acute (4) Hypomagnesemia: Status: Acute (5) Acute hyperglycemia: Status: Acute (6) Chronic alcoholism: Status: Chronic (7) Opioid use disorder, moderate, in early remission, on maintenance therapy, dependence: Status: Chronic (8) Lactate blood increase: Status: Acute (9) Cirrhosis: Status: Acute Discharge Plan Disposition Patient Disposition: Home Condition: Good Discharge Details Reason For Visit: acute pancreatitis,alcoh w/d,hypomagnesemiaw/pvc's Admit Date/Time: 02/10/25 23:42 Admit Provider: Pritesh Balderas Attending Provider: Pritesh Balderas [facility] Course: [facility] transferred from [facility] for acute alcoholic hepatitis and alcohol withdrawal. He maxed his dose on phenobarbital and required brief period on Precedex but ultimately his withdrawal symptoms resolved. Additionally, his pancreatitis symptoms improved and was able to tolerate full liquid diet without significant abdominal pain nausea or vomiting. Is also recommended that patient have outpatient EGD for evaluation of varices. Otherwise, it was determined that the patient was stable for discharge home. Home Meds and New Rx's Prescriptions: Continued methadone 10 mg/mL syringe 125 mg PO DAILY Discharge Instructions Activity:: Activity as Tolerated Equipment/Supplies:: No Equipment Needed Diet:: As Tolerated Discharge Orders Discharge Orders: Discharge Order (Routine); Ordered 02/13/25 Ordered By: Андрей Obrien DS: Summary Time Spent with Patient providing and/or coordinating discharge services: Greater than 30 minutes Status at Discharge Functional status at discharge: independent ambulation Overall status at discharge: patient is back to baseline Mental Status: mental status grossly normal Speech and Movement: speech and movement normal Mood: congruent mood Affect: normal affect Exam Narrative Exam Narrative: Fatigued but well-appearing gentleman sitting up in the bed in no acute distress, ANO x 4, heart regular rhythm, lungs good auscultation bilaterally, abdomen soft, nontender, nondistended Psych Mental Status: mental status grossly normal Speech and Movement: speech and movement normal Mood: congruent mood Affect: normal affect DS: Data Vitals/I&O Vitals and I&O: Vital Signs Temperature 95 F L 02/13/25 11:23 Temperature Source Temporal Artery Scan 02/13/25 11:23 Pulse 98 H 02/13/25 11:23 Pulse 94 H 02/12/25 13:41 Respiratory Rate 16 02/13/25 11:23 Respiratory Effort Normal 02/11/25 00:01 Blood Pressure 154/105 H 02/13/25 11:23 Blood Pressure Mean 121 02/13/25 11:23 Blood Pressure Position Supine 02/11/25 00:01 Pulse Oximetry 92 02/13/25 11:23 Oxygen Delivery Method Room Air 02/13/25 11:23 Oxygen Flow Rate 0 02/13/25 11:23 Pain Level 8 02/13/25 10:12 Comment abdomen pain. 02/12/25 23:31 Intake & Output 02/12/25 02/13/25 02/13/25 17:59 05:59 17:59 Intake Total 1707.142 / 1042.653 3514 / 3707.142 1000 / 1000 Output Total 850 / 850 0 / 850 Balance 857.142 / 172.999 4333 / 2857.142 1000 / 1000 Intake: IV 1087.142 / 5604.355 3351 / 3087.142 1000 / 1000 Oral 620 / 620 Output: Urine 450 / 450 Stool 400 / 400 Emesis 0 / 0 0 / 0 Other: Urine Color Pale Yellow Urine Appearance Clear Clear Urine Odor None Normal Comment Pt voided into toilet independently; not measured Pt voids ind. in toilet. Stool Size Moderate Stool Characteristics Liquid Liquid Brown Emesis Description None None Retching Data Completed and Pending Labs on day of discharge: Labs from last 24 hours 02/13/25 02/11/25 05:58 00:30 WBC 9.07 RBC 2.96 L Hgb 10.4 L Hct 29.5 L MCV 100 H MCH 35.1 H MCHC 35.3 RDW 20.6 H Plt Count 195 MPV 10.5 Immature Gran % 2.1 Neutrophils % 75.6 Lymphocytes % 12.3 Monocytes % 8.9 Eosinophils % 0.8 Basophils % 0.3 Nucleated RBC % 1.0 H Absolute Neutrophils 6.85 H Absolute Lymphocytes 1.12 L Absolute Monocytes 0.81 H Absolute Eosinophils 0.07 Absolute Basophils 0.03 RBC Morphology See Below Anisocytosis 1+ Sodium 137 Potassium 3.9 Chloride 100 Carbon Dioxide 29.0 Anion Gap 8.0 BUN 12 Creatinine 0.7 Est GFR (CKD-EPI 2020) 119.46 Glucose 208 H Calcium 7.8 L Magnesium 1.8 Total Bilirubin 1.0 AST 66 H ALT 19 Alkaline Phosphatase 58 Total Protein 5.0 L Albumin 1.9 L Ur Oxycodone Screen Negative Urine Fentanyl Screen Positive A Ur Fentanyl Confirm 18 A Ur Norfentanyl Confirm >200 A Urine Xylazine Negative PFSH All Active Problems (Updated 02/13/25 @ 11:54 by Андрей Obrien MD) Cirrhosis (Acute) Lactate blood increase (Acute) Elevated serum lactate dehydrogenase (LDH) (Acute) Esophageal thickening (Acute) Acute hyperglycemia (Acute) Opioid use disorder, moderate, in early remission, on maintenance therapy, dependence (Chronic) Hypomagnesemia (Acute) Hypokalemia (Acute) Alcohol withdrawal (Acute) Chronic alcoholism (Chronic) Acute pancreatitis without infection or necrosis (Acute) Social History Smoking/Tobacco Use Status: Current every day Tobacco Type: cigarettes Years smoked: 20 Tobacco: How many years used: 20 Smoking risk assessment performed?: Yes Alcohol Intake: current Alcohol Intake frequency: 3 or more drinks per day Alcohol type: hard liquor Drug use: Occasionally Substance use type: marijuana and opiates Housing: house Time Spent with Patient Time Spent with Patient: <45 minutes Time was spent: preparing to see the patient(eg.review tests), obtaining and/or reviewing separately otained hiistory, ordering medications,tests, procedures, referring, communicating with other health primary care coordinator, indepentently interpreting results, counseling the patient and care coordination
[2025-02-13] MEDS: HYDROmorphone 2 MG TAB PO (12:23)
[2025-02-13 12:32] VITALS: BP 150/100
--- NOTE | 2025-02-13 12:32 | PDOC.CMDIS ---
Date of service: 02/13/25 Time of Service: 12:32 LACE Index Scoring Tool Questions: Length of Stay (in days): 3 Was the patient admitted via the E.D.?: Yes Comorbidities: Liver or Renal Disease E.D. Visits: 1 Answers: Total Score: 12 Risk of Readmission: High Risk Care Management Discharge Plan Reason for Hospitalization: pancreatitis Discharge Plan: Amauri will be discharged home with no new services. He will follow up with his community providers and plan of care and transport with his mother. Amauri was provided with a last dose letter for [place] by [facility]. Patient/Family Education Needs: Review discharge instructions, limitations, follow up plan and discuss Ask Me Three
== END 2025-02-13 12:50 | disposition home or self-care (01) | DRG 439 ==
LOC: ICU 02-12 14:30 → MS 02-12 15:23
PROVIDERS: Hospitalist; Admitting Provider Family Medicine; PCP Specialist/Technologist Athletic Trainer; Responsible Provider Family Medicine; Visit Provider Family Medicine
DX: K85.20 Alcohol induced acute pancreatitis without necrosis or infection (principal); E87.20 Acidosis, unspecified; F10.239 Alcohol dependence with withdrawal, unspecified; I85.10 Secondary esophageal varices without bleeding; F11.20 Opioid dependence, uncomplicated; E87.6 Hypokalemia; K70.30 Alcoholic cirrhosis of liver without ascites; E83.42 Hypomagnesemia; R73.9 Hyperglycemia, unspecified; K21.9 Gastro-esophageal reflux disease without esophagitis; F17.210 Nicotine dependence, cigarettes, uncomplicated; F12.90 Cannabis use, unspecified, uncomplicated; I49.3 Ventricular premature depolarization
CPT/HCPCS: 00123; 36415; 80053; 80307; 80348; 80354; 80375; 83690; 85027; 87637; J1650; 74221; 76705; 80320; 81003; 81015; 83036; 83605; 83615; 83735; 84100; 84443; 85025; 85610; 93005; 93010; 99223; 99232; 99233; 99238; J0131; J1171; J1815; J2405; J2560; J2765; J3411; J3475; J3480; J3490